=== PATIENT | female | born 1985 | race Caucasian/White ===

== ENCOUNTER 2024-09-23 06:48 | Emergency (ER) | payer MEDICAID, SELFPAY ==
[2024-09-23 06:51] VITALS: BMI 60.4
[2024-09-23 07:08] VITALS: BP 110/71; PULSE 83; RESP 16; TEMP 37.1; O2SAT 96; BMI 29.2
--- NOTE | 2024-09-23 07:13 | XR_ITS ---
Examination: PA lateral chest 2 views TECHNIQUE: Upright PA lateral chest 2 views Date and time: September 23, 2024 0736 hours INDICATIONS: Chest pain weakness beginning 2 days ago. FINDINGS: Normal heart size. Lungs are clear. The osseous structures are intact IMPRESSION: No active disease
[2024-09-23 07:51] LABS: Basophils % (Auto) 0 % (0-2.5); Eosinophils # (Auto) 0.1 Thou/mm3 (0.0-0.5); Eosinophils % (Auto) 1 % (0-10); Hematocrit 35.8 % (36.0-46.0); Hemoglobin 12.3 g/dL (12.0-16.0); Immature Granulocytes % (Auto) 0 % (0-0); Immature Granulocytes Auto 0.01 Thou/mm3 (0.00-0.00); Lymphocytes # (Auto) 1.2 Thou/mm3 (1.0-4.8); Lymphocytes % (Auto) 17 % (10-50); Mean Corpuscular HGB Conc 34.4 g/dl (31.0-37.0); Mean Corpuscular Hemoglobin 28.3 pg (25.0-35.0); Mean Corpuscular Volume 82 fL (80-100); Monocytes # (Auto) 0.9 Thou/mm3 (0.0-0.8); Monocytes % (Auto) 12 % (0-12); Neutrophils % (Auto) 69 % (37-80); Nucleated Red Blood Cell % 0 /100 WBC (0); Platelet Count 296 Thou/mm3 (140-440); Red Blood Count 4.35 Miln/mm3 (4.00-5.20); White Blood Count 7.3 Thou/mm3 (3.6-11.0)
[2024-09-23 08:08] LABS: Alanine Aminotransferase 20 U/L (10-49); Albumin, Serum 4.3 gm/dL (3.5-5.0); Albumin/Globulin Ratio 1.9 (1.2-2.2); Alkaline Phosphatase 50 U/L (46-116); Anion Gap 9 (7-16); Aspartate Amino Transferase 27 U/L (0-34); BUN/Creatinine Ratio 7 Ratio (12-20); Bilirubin,Total 0.2 mg/dL (0.3-1.2); Blood Urea Nitrogen 6 mg/dL (9-23); Calcium 8.9 mg/dL (8.3-10.6); Calcium (Corrected) 8.9 mg/dL (8.5-10.1); Carbon Dioxide 25.8 mMol/L (20.0-31.0); Chloride 103 mMol/L (98-107); Creatinine (Component) 0.9 mg/dL (0.6-1.3); Estimated Creatinine Clearance 95.8 mL/min (>60); Globulin 2.3 gm/dL (2.3-3.5); Glucose 115 mg/dL (74-106); Osmolality,Calculated 274 (275-295); Potassium 4.1 mMol/L (3.4-5.1); Sodium 138 mMol/L (136-145); Total Protein 6.6 gm/dL (5.7-8.2); eGFR > 60 See Note
--- NOTE | 2024-09-23 08:30 | PD.EDURI ---
Upper Respiratory Inf. RME/HPI General Chief Complaint: Fever Stated Complaint: LOW BACK/FLANK PAIN FEVER Time Seen by Provider: 09/23/24 08:28 Source: patient Arrival date/time: 09/23/24 06:48 38-year-old female with no known medical history presents to the emergency room with a chief complaint of a fever, cough, congestion. Patient states she was recently diagnosed with strep and finished a course of antibiotics. Mode of arrival: ambulatory Limitations: no limitations Related Data Previous Rx's ?Medication ?Instructions ?Recorded albuterol sulfate 90 mcg/actuation 2 puff inhalation Q4HR PRN dyspnea 05/23/16 aerosol inhaler (ProAir HFA) #1 inh ibuprofen 600 mg tablet 600 mg PO Q6HR PRN PAIN #40 tabs 05/23/16 albuterol sulfate 90 mcg/actuation 1 - 2 puff inhalation Q6HR PRN 12/23/16 aerosol inhaler (ProAir HFA) WHEEZING #1 inh diphenhydramine HCl 25 mg tablet 25 mg PO QID PRN allergic reaction 03/29/19 (Benadryl Allergy) #30 tabs ibuprofen 800 mg tablet (IBU) 800 mg PO Q8H #20 tabs 01/17/23 zolmitriptan 2.5 mg disintegrating 2.5 mg PO QID PRN migraine 09/28/23 tablet headache #10 tabs doxycycline monohydrate 100 mg 100 mg PO BID 7 days #14 caps 09/23/24 capsule Allergies Allergy/AdvReac Type Severity Reaction Status Date / Time Penicillins Allergy Severe Anaphylaxis Verified 09/23/24 06:56 Cephalosporins Allergy Intermediate Rash Verified 09/23/24 06:56 ampicillin Allergy Unknown Verified 09/23/24 06:56 cephalexin Allergy Unknown Verified 09/23/24 06:56 Sulfa (Sulfonamide Allergy Unknown RASH Verified 09/23/24 06:56 Antibiotics) Review of Systems Review of Systems Systems Reviewed: All systems reviewed, normal except as documented Constitutional Constitutional: Reports system reviewed and no additional complaints, except as documented, Denies fatigue, Denies fever(s), Denies headache(s) and Denies weakness Eyes Eyes: Reports system reviewed and no additional complaints, except as documented, Denies blurry vision and Denies change in vision ENT Ears, Nose, Mouth, and Throat: Reports system reviewed and no additional complaints, except as documented, Denies otalgia, Denies headache(s), Denies nasal congestion, Denies throat swelling and Denies vertigo Cardiovascular Cardiovascular: Reports system reviewed and no additional complaints, except as documented, Denies chest pain, Denies dyspnea and Denies dyspnea on exertion Respiratory Respiratory: Reports system reviewed and no additional complaints, except as documented, Denies chest congestion, Denies cough, Denies dyspnea, Denies dyspnea on exertion and Denies wheezing Gastrointestinal Gastrointestinal: Reports system reviewed and no additional complaints, except as documented, Denies abdominal pain, Denies cramping, Denies nausea and Denies vomiting Genitourinary Genitourinary: Reports system reviewed and no additional complaints, except as documented Musculoskeletal Musculoskeletal: Reports system reviewed and no additional complaints, except as documented and Denies back pain Integumentary/Breasts Skin/Breast: Reports system reviewed and no additional complaints, except as documented and Denies wounds Neurologic Neurologic: Reports system reviewed and no additional complaints, except as documented, Denies confusion, Denies headache(s), Denies lack of coordination, Denies vertigo and Denies weakness Psychiatric Psychiatric: Reports system reviewed and no additional complaints, except as documented, Denies anxiety, Denies confusion, Denies depression, Denies paranoia, Denies suicidal ideation and Denies tactile hallucinations Endocrine Endocrine: Reports system reviewed and no additional complaints, except as documented and Denies fatigue Hematologic/Lymphatic Hematologic/Lymphatic: Reports system reviewed and no additional complaints, except as documented and Denies lymphadenopathy Allergic/Immunologic Allergic/Immunologic: Reports system reviewed and no additional complaints, except as documented, Denies throat swelling, Denies urticaria and Denies wheezing ED Exam General Limitations: Present no limitations General appearance: Present alert and in no apparent distress Head Head exam: Present atraumatic Eye Eye exam: Present normal appearance, PERRL and EOMI ENT ENT exam: Present normal exam, normal oropharynx and mucous membranes moist Neck Neck exam: Present normal inspection, full ROM and trachea midline Chest Chest inspection: Present normal inspection and symmetric chest wall rise Respiratory Respiratory exam: Present normal lung sounds bilaterally; Absent respiratory distress, wheezes, stridor, accessory muscle use or prolonged expiratory phase Cardiovascular Cardiovascular exam: Present regular rate, normal rhythm and normal heart sounds; Absent tachycardia Abdominal Exam Abdominal exam: Present soft and normal bowel sounds Extremities Exam Extremities exam: Present normal inspection and full ROM Back Exam Back exam: Present normal inspection and full ROM Neurological Exam Neurological exam: Present alert, oriented X3 and CN II-XII intact Psychiatric Psychiatric exam: Present normal affect and normal mood Skin Skin exam: Present warm, dry, intact and normal color Course Quality Measures none Orders Category Date Time Status Bedside COVID-19 Antigen Test NOW Care 09/23/24 07:13 Active Bedside Influenza A&B Antigen Test NOW Care 09/23/24 07:13 Completed XR chest 2V Stat Exams 09/23/24 07:13 Completed CBC Stat Lab 09/23/24 07:22 Completed CMP [Comprehensive Metabolic Panel] Stat Lab 09/23/24 07:22 Completed HYDROcodone*/APAP 5/325 [[place] 5/325] Med 09/23/24 08:28 Discontinued 1 tab PO X1 ONE Vital Signs Vital signs: Vital Signs Temperature 98.8 F 09/23/24 07:08 Pulse Rate 83 09/23/24 07:08 Respiratory Rate 16 09/23/24 07:08 Blood Pressure 110/71 09/23/24 07:08 Pulse Oximetry (%) 96 09/23/24 07:08 Oxygen Delivery Method Room Air 09/23/24 07:08 Upper Respiratory Infection MDM Narrative MDM Narrative:: 38-year-old female with no known medical history presents to the emergency room with a chief complaint of a fever, cough, congestion. Patient states she was recently diagnosed with strep and finished a course of antibiotics. Patient is hemodynamically stable. She is afebrile not tachycardic and not tachypneic Physical examination shows clear bilateral lung sounds. Patient states has been dealing with strep throat but her symptoms have actually gotten better and she denies any sore throat or pain with swallowing Chest x-ray was negative for any pneumonic infiltrates Patient was discharged and educated to follow-up with primary care provider in the next 24 to 48 hours and return to the emergency room for any evidence of worsening signs or symptoms Patient data External records reviewed:: [facility] previous records Clinical information provided by:: patient Social determinants that could affect healthcare access:: none Patient has the following chronic illnesses:: No chronic illness How is presenting disease/condition affected by chronic disease/condition?: no chronic disease Evaluation data The following diagnostics were reviewed and interpreted by me:: lab results and radiology exam(s) Lab and/or radiology exams considered but not ordered:: Labs and radiology exams considered and ordered Interpretation Summary: Chest [id number]: Normal heart size. Lungs are clear. The osseous structures are intact IMPRESSION: No active disease Medications / Prescriptions Medications or Prescriptions considered but not ordered:: Medication given Medication administrations:: Medication Administration History Discontinued Medications Hydrocodone Bitart/Acetaminophen (Hydrocodone/Apap 5/325 Tablet) 1 tab PO X1 ONE Stop: 09/23/24 08:29 Last Admin: 09/23/24 08:43 Dose: 1 tab Documented By: LEROY Medication given Consultations Consultation(s) initiated? (list below): No Diagnosis Upper Respiratory Differential Diagnosis: otitis media, sinusitis, bronchitis, influenza, pharyngitis and other (Community-acquired pneumonia) Most likely diagnosis given after review of the tests above:: Bronchitis Admission Indicated Admission indicated?: not indicated Admission Request Was there a request for admission?: No Disposition Plan Disposition Plan: Discharge Discharge Attestation Discharge Attestation: The patient and all family members were given an opportunity to ask questions and understood the discharge instructions. Discharge instructions specifically effects, indications for sooner follow up or return to the emergency department, and the expected course of current diagnosis. Patient condition: Stable Discharge Plan Plan Patient Disposition: HOME (Self Care) Discharge Disposition comment: Stable Prescriptions/Referrals Prescriptions/Med Rec: New doxycycline monohydrate 100 mg capsule 100 mg PO BID 7 Days Qty: 14 0RF No Action ibuprofen 600 MG tablet 600 mg PO Q6HR PRN (Reason: PAIN) Qty: 40 0RF albuterol sulfate [ProAir HFA] 8.5 GM HFA aerosol inhaler 2 puff Inhalation Q4HR PRN (Reason: dyspnea) Qty: 1 0RF Rx Instructions: any albuterol ok; dispense with spacer albuterol sulfate [ProAir HFA] 8.5 GM HFA aerosol inhaler 1 - 2 puff Inhalation Q6HR PRN (Reason: WHEEZING) Qty: 1 0RF Rx Instructions: Please give and use spacer diphenhydramine HCl [Benadryl Allergy] 25 mg tablet 25 mg PO QID PRN (Reason: allergic reaction) Qty: 30 0RF zolmitriptan 2.5 mg tablet,disintegrating 2.5 mg PO QID PRN (Reason: migraine headache) Qty: 10 0RF Rx Instructions: do not exceed 4 doses per 24 hrs ibuprofen [IBU] 800 mg tablet 800 mg PO Q8H Qty: 20 0RF Referrals: No Primary/Family,Physician [Primary Care Provider] - In 1 week Problem List Clinical Impression: Bronchitis Patient/Caregiver Discharge Instructions Education Materials: ED Upper Resp Infec Abx Tx Additional Instructions: Please follow-up with your primary care provider in the next 24 to 48 hours Your chest x-ray was negative for any pneumonia. Your blood work was all within normal limits. I sent over some medication for bronchitis. This is the most probable cause of your symptoms For any evidence of worsening signs or symptoms return to the emergency room immediately Print Language: Bengali Stand Alone Forms: Tiana Award Info., Work/School Release, Patient Portal Info Letter PA/EMISSIONS REPAIR TECHNICIAN Supervising Physician PA/EMISSIONS REPAIR TECHNICIAN Supervising Physician: Dr. Griffin
[2024-09-23] MEDS: HYDROcodone/APAP 5/325 TABLET 1 TAB PO (08:43)
== END 2024-09-23 10:51 | disposition home or self-care (01) ==
PROVIDERS: Nurse Practitioner Family; Emergency Provider Emergency Medicine
DX: J40 Bronchitis, not specified as acute or chronic (principal)
CPT/HCPCS: 36415; 71046; 80053; 85025; 87400; 87811; 99283; A9270

== ENCOUNTER 2024-12-11 15:39 | Emergency (ER) | payer MEDICAID, SELFPAY ==
[2024-12-11 15:40] VITALS: BMI 27.3
[2024-12-11 16:05] VITALS: BP 96/66; PULSE 86; RESP 20; TEMP 37.2; O2SAT 95
--- NOTE | 2024-12-11 16:28 | EKG_ITS ---
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
--- NOTE | 2024-12-11 16:28 | XR_ITS ---
Examination: PA lateral chest 2 views TECHNIQUE: Upright PA and lateral chest 2 views Date and time: December 11, 2024, 1645 hours, comparison September 23, 2024 INDICATIONS: Shortness of breath chest pain and coughing body aches and fever today. FINDINGS: Normal heart size. Lungs are clear. The osseous structures are intact. IMPRESSION: No active disease.
--- NOTE | 2024-12-11 16:30 | PD.EDRME ---
Rapid Medical Screening Exam RME Arrival date/time: 12/11/24 15:39 Time Seen by Provider: 12/11/24 16:28 Vital signs: Vital Signs Temperature 98.9 F 12/11/24 16:05 Pulse Rate 86 12/11/24 16:05 Respiratory Rate 20 12/11/24 16:05 Blood Pressure 96/66 12/11/24 16:05 Pulse Oximetry (%) 95 12/11/24 16:05 Oxygen Delivery Method Room Air 12/11/24 16:05 Vital signs reviewed by provider: Yes RME Narrative: Patient is a 39-year-old female with an emergency primary concerns for fever, nausea, diffuse abdominal pain and generally feeling unwell. Patient states she woke up fine, was doing a lot of cleaning at home with very strong chemicals, and laid down to nap. When she woke up she felt nauseous and vomited, had diffuse abdominal pain, had diffuse bodyaches and chills. She had a fever at home took 800 mg of ibuprofen prior to arrival. Patient is also endorsing chest pain with breathing. Patient has a history of long COVID, and bronchitis. Denies any recent travel sick contacts. No surgeries are evaluated. Patient is allergic to penicillins has an anaphylactic reaction per chart review
[2024-12-11] MEDS: ACETAMINOPHEN 325 MG TABLET 650 MG PO (17:01)
[2024-12-11 17:06] LABS: Basophils # (Auto) 0.0 Thou/mm3 (0.0-0.2); Basophils % (Auto) 0 % (0-2.5); Eosinophils # (Auto) 0.0 Thou/mm3 (0.0-0.5); Eosinophils % (Auto) 0 % (0-10); Hematocrit 41.5 % (36.0-46.0); Hemoglobin 13.7 g/dL (12.0-16.0); Immature Granulocytes Auto 0.03 Thou/mm3 (0.00-0.00); Lymphocytes # (Auto) 0.4 Thou/mm3 (1.0-4.8); Lymphocytes % (Auto) 4 % (10-50); Mean Corpuscular HGB Conc 33.0 g/dl (31.0-37.0); Mean Corpuscular Hemoglobin 27.9 pg (25.0-35.0); Mean Corpuscular Volume 85 fL (80-100); Monocytes # (Auto) 0.4 Thou/mm3 (0.0-0.8); Monocytes % (Auto) 4 % (0-12); Neutrophils # (Auto) 10.4 Thou/mm3 (1.8-7.7); Neutrophils % (Auto) 92 % (37-80); Nucleated Red Blood Cell # 0.00 Thou/mm3 (0.00-0.00); Nucleated Red Blood Cell % 0 /100 WBC (0); Platelet Count 243 Thou/mm3 (140-440); RDW Standard Deviation 40.7 fL (36.4-46.3); Red Blood Count 4.91 Miln/mm3 (4.00-5.20); White Blood Count 11.3 Thou/mm3 (3.6-11.0)
[2024-12-11 17:11] LABS: Collection Type, Urine Clean Catch
[2024-12-11 17:26] LABS: Alanine Aminotransferase 13 U/L (10-49); Albumin, Serum 4.3 gm/dL (3.5-5.0); Albumin/Globulin Ratio 1.9 (1.2-2.2); Alkaline Phosphatase 48 U/L (46-116); Anion Gap 10 (7-16); Aspartate Amino Transferase 18 U/L (0-34); BUN/Creatinine Ratio 13 Ratio (12-20); Bilirubin,Total 0.7 mg/dL (0.3-1.2); Blood Urea Nitrogen 12 mg/dL (9-23); Calcium 9.2 mg/dL (8.3-10.6); Calcium (Corrected) 9.2 mg/dL (8.5-10.1); Carbon Dioxide 23.2 mMol/L (20.0-31.0); Chloride 102 mMol/L (98-107); Creatinine (Component) 0.9 mg/dL (0.6-1.3); Estimated Creatinine Clearance 91.9 mL/min (>60); Globulin 2.3 gm/dL (2.3-3.5); Glucose 98 mg/dL (74-106); Lipase 40 U/L (12-53); Osmolality,Calculated 269 (275-295); Potassium 3.8 mMol/L (3.4-5.1); Sodium 135 mMol/L (136-145); Total Protein 6.6 gm/dL (5.7-8.2); Troponin I < 0.002 ng/mL (0.0-0.045); eGFR > 60 See Note
[2024-12-11 17:59] LABS: Bacteria,Urine Rare; Bilirubin,Urine Negative (Negative); Blood,Urine Negative (Negative); Clarity,Urine Clear (Clear/Hazy); Color,Urine Lt-Yellow (Lt Yel-Yel); Culture Indicated,Urine Not Indicated; Glucose, Urine Negative (Negative); Ketones,Urine Negative (Negative); Leukocyte Esterase,Urine Positive (Negative); Nitrite,Urine Negative (Negative); PH,Urine 6.0 (5.0-7.0); Protein,Urine Negative (Neg - Trace); RBC,Urine 2 /hpf (0-3); Specific Gravity,Urine 1.015 (1.001-1.035); Squamous Epithelial Cell,Urine 7 /hpf (0-5); Urobilinogen,Urine Negative mg/dL (0.0-1.0); WBC,Urine 1 /hpf (0-5)
[2024-12-11 20:23] VITALS: BP 97/66; PULSE 81; RESP 18; TEMP 37; O2SAT 98
--- NOTE | 2024-12-11 20:51 | EDNOTE_ITS ---
Nausea/Vomit./Diarrhea-RME/HPI General Chief complaint: Nausea/Vomiting/Diarrhea Stated complaint: VOMITING/FEVER/CXP/BODY ACHES/DIFF BREATHING Time Seen by Provider: 12/11/24 16:28 Source: patient Arrival date/time: 12/11/24 15:39 Mode of arrival: ambulatory Limitations: no limitations RME / HPI RME / HPI Narrative: Patient is a 39-year-old female with an emergency primary concerns for fever, nausea, diffuse abdominal pain and generally feeling unwell. Patient states she woke up fine, was doing a lot of cleaning at home with very strong chemicals, and laid down to nap. When she woke up she felt nauseous and vomited, had diffuse abdominal pain, had diffuse bodyaches and chills. She had a fever at home took 800 mg of ibuprofen prior to arrival. Patient is also endorsing chest pain with breathing. Patient has a history of long COVID, and bronchitis. Denies any recent travel sick contacts. No surgeries are evaluated. Patient is allergic to penicillins has an anaphylactic reaction per chart review Related Data Previous Rx's ?Medication ?Instructions ?Recorded albuterol sulfate 90 mcg/actuation 2 puff inhalation Q 4HR PRN dyspnea 05/23/16 aerosol inhaler (ProAir HFA) #1 inh ibuprofen 600 mg tablet 600 mg PO Q6HR PRN PAIN #40 tabs 05/23/16 albuterol sulfate 90 mcg/actuation 1 - 2 puff inhalati on Q6HR PRN 12/23/16 aerosol inhaler (ProAir HFA) WHEEZING #1 inh diphenhydramine HCl 25 mg tablet 25 mg PO QID PRN arlen rgic reaction 03/29/19 (Benadryl Allergy) #30 tabs ibuprofen 800 mg tablet (IBU) 800 mg PO Q8H #20 tabs 0 01/17/23 zolmitriptan 2.5 mg disintegrating 2.5 mg PO QID PRN m igraine 09/28/23 tablet headache #10 tabs Allergies Allergy/AdvReac Type Severity Reaction Status Date / Time Cephalosporins Allergy Severe Rash Verified 12/11/24 15:43 Penicillins Allergy Severe Anaphylaxis Verified 12/11/24 15:43 ampicillin Allergy Unknown Verified 12/11/24 15:43 cephalexin Allergy Unknown Verified 12/11/24 15:43 Sulfa (Sulfonamide Allergy Unknown RASH Verified 12/11/24 15:43 Antibiotics) Review of Systems Review of Systems Systems Reviewed: All systems reviewed, normal except as documented ED Exam General Limitations: Present no limitations General appearance: Present alert and in no apparent distress Head Head exam: Present atraumatic Eye Eye exam: Present normal appearance, PERRL and EOMI ENT ENT exam: Present normal exam, normal oropharynx and mucous membranes moist Neck Neck exam: Present normal inspection, full ROM and trachea midline Chest Chest inspection: Present normal inspection and symmetric chest wall rise Respiratory Respiratory exam: Present normal lung sounds bilaterally Cardiovascular Cardiovascular exam: Present regular rate, normal rhythm and normal heart sounds Abdominal Exam Abdominal exam: Present soft; Absent distention, guarding, rebound or rigidity Extremities Exam Extremities exam: Present normal inspection and full ROM Back Exam Back exam: Present normal inspection and full ROM Neurological Exam Neurological exam: Present alert and oriented X3 Psychiatric Psychiatric exam: Present normal affect and normal mood Skin Skin exam: Present warm, dry, intact and normal color Course Quality Measures none Orders Category Date Time Status Bedside COVID-19 Antigen Test NOW Care 12/11/24 16:28 Active Bedside Influenza A&B Antigen Test NOW Care 12/11/24 16:29 Completed EKG (ED ONLY) *Do not use* NOW Care 12/11/24 16:29 Completed CXR2 [XR chest 2V] Stat Exams 12/11/24 16:28 Completed EKG (ED Only) Stat Exams 12/11/24 16:28 Draft CBC Stat Lab 12/11/24 16:55 Completed CMP [Comprehensive Metabolic Panel] Stat Lab 12/11/24 16:55 Completed Lipase Stat Lab 12/11/24 16:55 Completed Troponin I Stat Lab 12/11/24 16:55 Completed UA, C/S IF [Urinalysis, C/S if Indicated] Stat Lab 12/11/24 17:00 Completed Acetaminophen Tab [Tylenol Tab] Med 12/11/24 16:28 Discontinued 650 mg PO X1 ONE Vital Signs Vital signs: Vital Signs Temperature 98.9 F 12/11/24 16:05 Pulse Rate 86 12/11/24 16:05 Respiratory Rate 20 12/11/24 16:05 Blood Pressure 96/66 12/11/24 16:05 Pulse Oximetry (%) 95 12/11/24 16:05 Oxygen Delivery Method Room Air 12/11/24 16:05 Nausea/Vomiting/Diarrhea MDM Narrative MDM Narrative:: Patient is a 39-year-old female with an emergency primary concerns for fever, nausea, diffuse abdominal pain and generally feeling unwell. Patient states she woke up fine, was doing a lot of cleaning at home with very strong chemicals, and laid down to nap. When she woke up she felt nauseous and vomited, had diffuse abdominal pain, had diffuse bodyaches and chills. She had a fever at home took 800 mg of ibuprofen prior to arrival. Patient is also endorsing chest pain with breathing. Patient has a history of long COVID, and bronchitis. Denies any recent travel sick contacts. No surgeries are evaluated. Patient is allergic to penicillins has an anaphylactic reaction per chart review On exam, patient is nontoxic-appearing and in no visible signs of distress. Vital signs are stable. Abdomen exam is benign. Your workup is reassuring. She has no significant leukocytosis or anemia. Her metabolic panel is unremarkable. Urinalysis is unremarkable. Chest x-ray is unremarkable. Patient data External records reviewed:: None Clinical information provided by:: patient Social determinants that could affect healthcare access:: none Patient has the following chronic illnesses:: n/a How is presenting disease/condition affected by chronic disease/condition?: no chronic disease Evaluation data The following diagnostics were reviewed and interpreted by me:: lab results (No leukocytosis or metabolic derangement. Urinalysis is unremarkable.), radiology exam(s) (Clear expanded lungs no mass or infiltrate) and EKG tracing(s) (Normal sinus rhythm at [address] changes.3.) Lab and/or radiology exams considered but not ordered:: n/a Interpretation Summary: Workup is unremarkable Medications / Prescriptions Medications / Prescriptions considered but not ordered:: n/a Medication administrations:: Medication Administration History Discontinued Medications Acetaminophen (Acetaminophen 325 Mg Tablet) 650 mg PO X1 ONE Stop: 12/11/24 16:29 Last Admin: 12/11/24 17:01 Dose: 650 mg Documented By: VL See above Consultations Consultation(s) initiated? (list below): No Diagnosis Nausea Differential Diagnosis: gastroenteritis and dehydration Most likely diagnosis given after review of the tests above:: Abdominal cramp Admission Indicated Admission indicated?: not indicated Admission Request Was there a request for admission?: No Disposition Plan Disposition Plan: Discharge Discharge Attestation Discharge Attestation: The patient and all family members were given an opportunity to ask questions and understood the discharge instructions. Discharge instructions specifically effects, indications for sooner follow up or return to the emergency department, and the expected course of current diagnosis. Patient condition: Stable Discharge Plan Plan Patient Disposition: HOME (Self Care) Patient condition on transfer: Stable Prescriptions/Referrals Prescriptions/Med Rec: No Action ibuprofen 600 MG tablet 600 mg PO Q6HR PRN (Reason: PAIN) Qty: 40 0RF albuterol sulfate [ProAir HFA] 8.5 GM HFA aerosol inhaler 2 puff Inhalation Q4HR PRN (Reason: dyspnea) Qty: 1 0RF Rx Instructions: any albuterol ok; dispense with spacer albuterol sulfate [ProAir HFA] 8.5 GM HFA aerosol inhaler 1 - 2 puff Inhalation Q6HR PRN (Reason: WHEEZING) Qty: 1 0RF Rx Instructions: Please give and use spacer diphenhydramine HCl [Benadryl Allergy] 25 mg tablet 25 mg PO QID PRN (Reason: allergic reaction) Qty: 30 0RF zolmitriptan 2.5 mg tablet,disintegrating 2.5 mg PO QID PRN (Reason: migraine headache) Qty: 10 0RF Rx Instructions: do not exceed 4 doses per 24 hrs ibuprofen [IBU] 800 mg tablet 800 mg PO Q8H Qty: 20 0RF Referrals: Joni Poe MD [Primary Care Provider] - In 1 week Problem List Clinical Impression: Abdominal pain Patient/Caregiver Discharge Instructions Education Materials: Abdominal Pain Additional Instructions: - Use Tylenol and ibuprofen as needed for comfort. - Contact your primary doctor to schedule close follow-up appointment revisit today - Please return to the emergency room anytime for any worsening changes consider further workup and Print Language: Prydeinig Stand Alone Forms: Tiana Award Info., Patient Portal Info Letter
== END 2024-12-11 21:05 | disposition home or self-care (01) ==
PROVIDERS: Emergency Provider Emergency Medicine; PCP Family Medicine
DX: R10.84 Generalized abdominal pain (principal); R11.2 Nausea with vomiting, unspecified
CPT/HCPCS: 36415; 71046; 80053; 81001; 83690; 84484; 85025; 87400; 87811; 93005; 99283; A9270